=== PATIENT | male | born 1975 | race Hispanic/Latino ===

== ENCOUNTER 2016-09-27 20:33 | Emergency (ER) ==
--- NOTE | 2016-09-27 22:18 | PROVIDER DOCUMENTATION ---
HPI-General Adult <Barb Paz - Last Filed: 09/27/16 22:16> - General Source: patient - History of Present Illness -Gen Adult Nature of Presenting Problems: 41 year old M presents to the ED with a cc of cough, congestion, body aches, and fever with an onset of 4 days ago. Location of Pain/Injury: reports: generalized Pain Radiation: reports: no radiation Quality of Pain: reports: aching Severity: reports: mild Onset/Duration: reports: 4 days ago Timing: reports: still present Context/Activities at Onset: reports: none Associated Symptoms: reports: cough, fever/chills, muscle aches, sinus congestion/drainage Similar Symptoms Previously?: No Recently seen or treated by another doctor?: No <Cindi Hu - Last Filed: 09/27/16 22:34> - General Chief Complaint: Cold Symptoms Stated Complaint: COLD SX Time Seen by Provider: 09/27/16 21:58 Allergies/Adverse Reactions: Patient Allergies Allergy/AdvReac Type Severity Reaction Status Date / Time No Known Allergies Allergy Verified 10/31/15 08:44 Home Medications: Metformin [Glucophage] 500 mg PO TID 07/27/16 Review of Systems - Adult - REVIEW OF SYSTEMS - ADULT Constitutional: reports: fever. denies: chills Eyes: reports: no symptoms reported Ears, Nose, Mouth & Throat: reports: sinus problem. denies: ear pain, throat pain Cardiovascular: reports: no symptoms reported Respiratory: reports: cough. denies: shortness of breath Gastrointestinal: denies: diarrhea, nausea, vomiting Genitourinary: reports: no symptoms reported Musculoskeletal: reports: muscle aches. denies: muscle weakness Integumentary: denies: skin sores/ulcer, skin thickening Neurological: reports: no symptoms reported Psychiatric: reports: no symptoms reported Endocrine: reports: no symptoms reported Hematologic/Lymphatic: reports: no symptoms reported Allergic/Immunologic: reports: no symptoms reported All Other Systems: Reviewed and Negative <Cindi Hu - Last Filed: 09/27/16 22:34> Past History - Adult - PAST MEDICAL HISTORY-ADULT Major Childhood Illnesses: reports: denies history Endocrine/Immune: reports: Diabetes - PRIOR SURGERIES/PROCEDURES Surgical/Procedure History: reports: none - IMMUNIZATION STATUS Childhood Immunizations: See Nurse Assessment Flu Vaccine: See Nurse Assessment <Barb Paz - Last Filed: 09/27/16 22:16> - PAST MEDICAL HISTORY-ADULT Review of Records: reports: Nursing Assessment Review, Medications Reviewed Major Childhood Illnesses: reports: denies history Endocrine/Immune: reports: Diabetes - PRIOR SURGERIES/PROCEDURES Surgical/Procedure History: reports: none - IMMUNIZATION STATUS Childhood Immunizations: See Nurse Assessment Flu Vaccine: See Nurse Assessment - SOCIAL HISTORY Smoking: cigarettes, less than 1 pack/day Provider spent 3-5 mins advising pt. on dangers of tobacco.: Discussed manners to quit use, and f/u contacts for add'l counseling. Substance Use: none/never Alcohol Use Frequency: occasionally <Cindi Hu - Last Filed: 09/27/16 22:34> Physical Exam-General - PHYSICAL EXAM-ADULT Initial Vital Signs Reviewed: Yes - CONSTITUTIONAL General Appearance: appears well, alert, no apparent distress - EYES Eyes: PERRL/EOMI, pink conjunctivae - HEAD, EARS, NOSE, MOUTH & THROAT HENMT: normocephalic/atraumatic, moist mucous membranes. negative: tonsillar exudate, frontal tenderness, maxillary tenderness - NECK Neck: non-tender, full range of motion, supple. negative: lymphadenopathy - RESPIRATORY Respiratory: chest non-tender, lungs clear, normal breath sounds - CARDIOVASCULAR Cardiovascular: regular rate, rhythm, no edema - MUSCULOSKELETAL Back Exam: normal inspection, no CVA tenderness, no vertebral tenderness Extremity: normal gait, normal inspection - SKIN Integumentary: normal color, normal turgor, warm/dry. negative: rash - NEUROLOGIC Neurologic: grossly normal, no motor/sensory deficits - PSYCHIATRIC Psych/Mental Status: normal thought content, normal thought process <Barb Paz - Last Filed: 09/27/16 22:16> Progress - PLAN OF CARE/RESULTS Progress/Plan/Lab Results: Vital Signs Temp Pulse Resp BP Pulse Ox 09/27/16 20:58 100.0 F H 123 H 20 110/66 100 No Known Allergies Allergy (Verified 10/31/15 08:44) Metformin [Glucophage] 500 mg PO TID 07/27/16 Iron,Carbonyl/Ascorbic Acid [Iron 100-Vitamin C Tablet] 1 each PO BID #90 tablet 08/01/16 Omeprazole [Prilosec] 20 mg PO BID #90 capsule 08/01/16 Propranolol [Inderal] 10 mg PO BID #90 tablet 08/01/16 <Barb Paz - Last Filed: 09/27/16 22:16> Departure - Departure Time of Disposition Order: 22:17 Certified Medical Emergency: Emergent <Barb Paz - Last Filed: 09/27/16 22:16> <Cindi Hu - Last Filed: 09/27/16 22:34> - Departure DIAGNOSIS: Upper respiratory infection Qualifiers: URI type: unspecified URI Qualified Code(s): J06.9 - Acute upper respiratory infection, unspecified Disposition: HOME 01 Condition: Good Additional Instructions: ED Follow Up Instructions: You have been treated by a care provider in the Emergency Department. These instructions are being provided to you so you can have an understanding of how to care for yourself upon discharge. Upon discharge from the Emergency Department, you are responsible for making arrangements for follow-up care by a physician of your choice. Take all prescribed medications as directed. Return to the Emergency Department immediately for any new or worsening symptoms. You may call the Physician Referral phone number at [phone] to obtain a list of Physicians who are taking new patients. Prescriptions: Guaifenesin/Dextromethorphan [Guaifenesin Dm Syrup] 10 ml PO BID #120 ml Azithromycin [Zithromax Z-Donavon] 250 mg PO DIRECTED #1 pkg Referrals: None,PCP [Primary Care Provider] - Kourtney Watts MD [STAFF PHYSICIAN] - Forms: Return to School/Parent Work Instructions: Upper Respiratory Infection, Adult, Guaifenesin oral solution and syrup, Azithromycin tablets Attestation - Physician/ Mid-level Attestation Patient care was provided by Mid-level provider (VETERINARY X RAY OPERATOR/PA):: Yes Mid-level provider:: Barb Paz Mid-level documentation review:: The Mid-level provider documentation, treatment plan and medical decision making was reviewed by the physician who agrees with all treatment and medical decision making by the ML. <Barb Paz - Last Filed: 09/27/16 22:16> - Scribe Verification/Attestation Scribe:: Cindi Hu Acting as Scribe for:: Barb Paz Scribe documention review:: This chart was documented by a scribe and accurately reflects the service the provider performed and the decisions made by the provider. <Cindi Hu - Last Filed: 09/27/16 22:34> Physician Attestation - Physician Attestation I, the provider, attest to the following statement:: Barb Paz Physician documentation Attestation:: This documentation recorded by the scribe accurately reflects the service I personally performed and the decisions made by me. <Cindi Hu - Last Filed: 09/27/16 22:34>
[2016-09-27 22:29] VITALS: BP 114/73
== END 2016-09-27 22:52 | disposition home or self-care (01) ==
LOC: P.ED 20:33
DX: J06.9 Acute upper respiratory infection, unspecified (principal); R05 Cough; R09.81 Nasal congestion; M79.1 Myalgia; R50.9 Fever, unspecified; E11.9 Type 2 diabetes mellitus without complications; Z79.899 Other long term (current) drug therapy; F17.210 Nicotine dependence, cigarettes, uncomplicated; Z71.6 Tobacco abuse counseling